=== PATIENT | female | born 1950 | race Caucasian/White ===

== ENCOUNTER 2022-06-06 17:08 | Emergency (ER) | payer MEDICARE, OTHER, SELFPAY ==
[2022-06-06 17:12] VITALS: BP 161/76; PULSE 98; RESP 18; TEMP 37.1; O2SAT 97; BMI 24.8
--- NOTE | 2022-06-06 17:37 | CRLHL7_ITS ---
For Patients: As a result of the Century Cures Act, medical imaging exams and procedure reports are released immediately into your electronic medical record. You may view this report before your referring provider. If you have questions, please contact your health care provider. INDICATION: COUGH TECHNIQUE: Chest 1 view. COMPARISON: None. FINDINGS: Cardiovascular and mediastinum: Heart size and vasculature are normal in caliber and appearance. Mediastinum is within normal limits. Lungs and pleural space: Lungs are clear. No sign of infiltrate or mass. No sign of pleural effusion. No pneumothorax. Bones and soft tissues: No significant findings. IMPRESSION: Unremarkable chest. Dictated by: Berny Estrada MD @ 06/06/2022 18:00:46 (Electronically Signed)
--- NOTE | 2022-06-06 17:54 | ED_ITS ---
HPI - General Adult General Chief complaint: High Blood Pressure Stated complaint: High Blood Pressure Time Seen by Provider: 06/06/22 17:09 Source: patient Mode of arrival: ambulatory Limitations: no limitations History of Present Illness HPI narrative: Patient is a 72-year-old female coming in today with generalized not feeling well. She states she woke up this morning and just felt off. Her face felt flushed, her ears felt full, her throat felt dry, she felt tired. She is very concerned because her blood pressure was 150 systolic at home and she is afraid she is going to have a heart attack or stroke. She states that her blood pressures generally in the 120s systolic. She was just started on losartan 4 days ago. She was on lisinopril previous to that but developed angioedema. She denies headache, blurry vision, muffled hearing, confusion or slurred speech. She denies chest pain or feeling short of breath. She denies urinary symptoms such as increased frequency, urgency or dysuria. She denies constipation or diarrhea. She states that she has abdominal cramping that comes and go but this is not necessarily new for her. She denies any skin changes. She denies any neurologic deficits. She denies tripping or falling recently. She denies any head trauma. Related Data Home Medications Medication Instructions Recorded Confirmed amlodipine 5 mg tablet mg 06/06/22 estradiol 10 mcg vaginal tablet mcg VAGINAL 06/06/22 lansoprazole 30 mg capsule,delayed mg 06/06/22 release losartan 50 mg tablet mg 06/06/22 rosuvastatin 10 mg tablet mg 06/06/22 Allergies Allergy/AdvReac Type Severity Reaction Status Date / Time lisinopril Allergy lip Verified 06/06/22 17:22 swelling Review of Systems Status of ROS: Reports: 10 or more systems reviewed and unremarkable except as noted in History and below Exam Narrative: Exam Narrative: Well-nourished well-developed patient in no acute distress, but is quite anxious. Alert and oriented. Answers questions appropriately. No tangential or magical thinking noted. Patient speaks in full sentences without needing to catch their breath. HEENT: Normocephalic atraumatic. Pupils are equally round reactive to light. Extraocular muscles are intact. Conjunctivae are moist without any icterus noted. Moist mucous membranes. Posterior pharynx is normal. Neck is soft without any lymphadenopathy or thyromegaly. No masses are appreciated. Cardiovascular: Heart is regular rate and rhythm S1 and S2 are present without any murmurs. Lungs: Clear to auscultation bilaterally no wheezes rhonchi or rales are appreciated. Patient takes deep breaths without any discomfort. Abdomen: Soft and nontender nondistended with normal bowel sounds. No guarding or rebound. No masses or organomegaly appreciated. Extremities: Bilateral lower extremities are without edema. Normal DP and PT pulses. Skin: Well perfused without any obvious rashes. Const: Vital Signs, click to edit/add: Vital Signs - 24 hr 06/06/22 17:12 Temperature 98.7 F Pulse Rate [Right Pulse Oximeter] 98 Respiratory Rate 18 Blood Pressure [Ri ght Upper Arm] 161/76 H Pulse Oximetry 97 Course Course Hospital Course: Workup done which included lab work and imaging-everything was unremarkable today. Vital Signs Vital signs: Initial Vital Signs Temperature 98.7 F 06/06/22 17:12 Temperature Source Temporal Artery Scan 06/06/22 17:12 Pulse Rate 98 06/06/22 17:12 Respiratory Rate 18 06/06/22 17:12 Blood Pressure 161/76 H 06/06/22 17:12 Blood Pressure Mean 104 06/06/22 17:12 Blood Pressure Position Sitting 06/06/22 17:12 Pulse Oximetry 97 06/06/22 17:12 Oxygen Delivery Method 06/06/22 17:12 Vital Signs Temperature 98.7 F 06/06/22 17:12 Pulse Rate 98 06/06/22 17:12 Respiratory Rate 18 06/06/22 17:12 Blood Pressure 161/76 H 06/06/22 17:12 Pulse Oximetry 97 06/06/22 17:12 Temperature 98.7 F 06/06/22 17:12 Pulse Rate 98 06/06/22 17:12 Respiratory Rate 18 06/06/22 17:12 Blood Pressure 161/76 H 06/06/22 17:12 Pulse Oximetry 97 06/06/22 17:12 Medical Decision Making MDM Narrative Medical decision making narrative: 72-year-old female with nonspecific feelings of just not feeling well. Her workup was unremarkable today. We discussed resting, increasing hydration, eating nutritious meals and following up with her primary care provider this week. Certainly, returning if things are getting worse. Patient was agreeable with everything we discussed and had no other questions. Medical Records Medical records reviewed: Yes I reviewed the patient's medical records Lab Data Lab results reviewed: Yes I reviewed the patient's lab results Labs: Lab Results 06/06/22 06/06/22 06/06/22 Range/Units 17:38 18:30 18:30 WBC 6.27 (4.50-11.00) K/uL RBC 4.92 (4.00-5.20) m/uL Hgb 14.8 (12.0-16.0) gm/dL Hct 44.2 (33.0-51.0) % MCV 90 (80-100) fL MCH 30 (26-34) pg MCHC 34 (32-36) gm/dL RDW Coeff of Bryanna 12.1 (11.5-15.5) % Plt Count 271 (140-440) K/uL Neut % (Auto) 70.0 (42.0-72.0) % Lymph % (Auto) 21.7 (20-44) % [place] % (Auto) 7.3 (0.0-11.0) % Eos % (Auto) 0.8 (0.0-7.0) % Baso % (Auto) 0.0 (0.0-3.0) % Neut # (Auto) 4.39 (1.7-7.0) K/uL Lymph # (Auto) 1.36 (0.90-2.90) K/uL [place] # (Auto) 0.50 (0.00-0.90) K/UL Eos # (Auto) 0.05 (0.00-0.50) K/uL Baso # (Auto) 0.00 (0.00-0.30) K/uL Abs Immat Gran (auto) 0.01 (0.00-0.30) K/uL ESR 8 (2-20) mm/hr Sodium (135-149) mmol/L Potassium (3.6-5.1) mmol/L Chloride (96-114) mmol/L Carbon Dioxide (20-32) mmol/L BUN (7-30) mg/dL Creatinine (0.5-1.5) mg/dL Estimated Creat Clear Estimated GFR ml/min Glucose (60-115) mg/dL Lactate (0.5-1.9) mmol/L Calcium (8.4-10.6) mg/dL Total Bilirubin (0.1-1.5) mg/dL Direct Bilirubin (0.0-0.5) mg/dL AST (12-35) U/L ALT (4-35) U/L Alkaline Phosphatase (40-150) U/L C-Reactive Protein (0.5-1.0) mg/dL Total Protein (6.0-8.3) g/dL Albumin (3.3-5.0) g/dL Urine Color Yellow (Yellow) Urine Appearance Clear (Clear) Urine pH 6.0 (5.0-8.5) Ur Specific [place] 1.025 (1.000-1.030) Urine Protein Negative (Negative) Urine Glucose (UA) Negative (Negative) Urine Ketones Trace A (Negative) Urine Blood Negative (Negative) Urine Nitrite Negative (Negative) Urine Bilirubin Negative (Negative) Urine Urobilinogen 0.2 (0.2-1.0) Ur Leukocyte Esterase Negative (Negative) Urine RBC 2-5 A (0-2) Urine WBC 0-2 (0-5) Ur Squamous Epith Cells Few (None-Few) Urine Bacteria None (None) SARS-CoV-2 (PCR) (Negative) Influenza Type A (PCR) (Negative) Influenza Type B (PCR) (Negative) Group A Strep DNA (No Detected) POC Troponin I (0.01-0.04) ng/ml 06/06/22 06/06/22 06/06/22 Range/Units 18:30 18:30 18:30 WBC (4.50-11.00) K/uL RBC (4.00-5.20) m/uL Hgb (12.0-16.0) gm/dL Hct (33.0-51.0) % MCV (80-100) fL MCH (26-34) pg MCHC (32-36) gm/dL RDW Coeff of Bryanna (11.5-15.5) % Plt Count (140-440) K/uL Neut % (Auto) (42.0-72.0) % Lymph % (Auto) (20-44) % [place] % (Auto) (0.0-11.0) % Eos % (Auto) (0.0-7.0) % Baso % (Auto) (0.0-3.0) % Neut # (Auto) (1.7-7.0) K/uL Lymph # (Auto) (0.90-2.90) K/uL [place] # (Auto) (0.00-0.90) K/UL Eos # (Auto) (0.00-0.50) K/uL Baso # (Auto) (0.00-0.30) K/uL Abs Immat Gran (auto) (0.00-0.30) K/uL ESR (2-20) mm/hr Sodium 139 (135-149) mmol/L Potassium 3.8 (3.6-5.1) mmol/L Chloride 105 (96-114) mmol/L Carbon Dioxide 25 (20-32) mmol/L BUN 13 (7-30) mg/dL Creatinine 0.5 (0.5-1.5) mg/dL Estimated Creat Clear 45.09 Estimated GFR 99 ml/min Glucose 108 (60-115) mg/dL Lactate 0.9 (0.5-1.9) mmol/L Calcium 9.8 (8.4-10.6) mg/dL Total Bilirubin 0.5 (0.1-1.5) mg/dL Direct Bilirubin 0.2 (0.0-0.5) mg/dL AST 25 (12-35) U/L ALT 37 H (4-35) U/L Alkaline Phosphatase 77 (40-150) U/L C-Reactive Protein < 0.5 L (0.5-1.0) mg/dL Total Protein 7.6 (6.0-8.3) g/dL Albumin 5.0 (3.3-5.0) g/dL Urine Color (Yellow) Urine Appearance (Clear) Urine pH (5.0-8.5) Ur Specific [place] (1.000-1.030) Urine Protein (Negative) Urine Glucose (UA) (Negative) Urine Ketones (Negative) Urine Blood (Negative) Urine Nitrite (Negative) Urine Bilirubin (Negative) Urine Urobilinogen (0.2-1.0) Ur Leukocyte Esterase (Negative) Urine RBC (0-2) Urine WBC (0-5) Ur Squamous Epith Cells (None-Few) Urine Bacteria (None) SARS-CoV-2 (PCR) (Negative) Influenza Type A (PCR) (Negative) Influenza Type B (PCR) (Negative) Group A Strep DNA Not Detected (No Detected) POC Troponin I (0.01-0.04) ng/ml 06/06/22 06/06/22 Range/Units 18:30 18:30 WBC (4.50-11.00) K/uL RBC (4.00-5.20) m/uL Hgb (12.0-16.0) gm/dL Hct (33.0-51.0) % MCV (80-100) fL MCH (26-34) pg MCHC (32-36) gm/dL RDW Coeff of Bryanna (11.5-15.5) % Plt Count (140-440) K/uL Neut % (Auto) (42.0-72.0) % Lymph % (Auto) (20-44) % [place] % (Auto) (0.0-11.0) % Eos % (Auto) (0.0-7.0) % Baso % (Auto) (0.0-3.0) % Neut # (Auto) (1.7-7.0) K/uL Lymph # (Auto) (0.90-2.90) K/uL [place] # (Auto) (0.00-0.90) K/UL Eos # (Auto) (0.00-0.50) K/uL Baso # (Auto) (0.00-0.30) K/uL Abs Immat Gran (auto) (0.00-0.30) K/uL ESR (2-20) mm/hr Sodium (135-149) mmol/L Potassium (3.6-5.1) mmol/L Chloride (96-114) mmol/L Carbon Dioxide (20-32) mmol/L BUN (7-30) mg/dL Creatinine (0.5-1.5) mg/dL Estimated Creat Clear Estimated GFR ml/min Glucose (60-115) mg/dL Lactate (0.5-1.9) mmol/L Calcium (8.4-10.6) mg/dL Total Bilirubin (0.1-1.5) mg/dL Direct Bilirubin (0.0-0.5) mg/dL AST (12-35) U/L ALT (4-35) U/L Alkaline Phosphatase (40-150) U/L C-Reactive Protein (0.5-1.0) mg/dL Total Protein (6.0-8.3) g/dL Albumin (3.3-5.0) g/dL Urine Color (Yellow) Urine Appearance (Clear) Urine pH (5.0-8.5) Ur Specific [place] (1.000-1.030) Urine Protein (Negative) Urine Glucose (UA) (Negative) Urine Ketones (Negative) Urine Blood (Negative) Urine Nitrite (Negative) Urine Bilirubin (Negative) Urine Urobilinogen (0.2-1.0) Ur Leukocyte Esterase (Negative) Urine RBC (0-2) Urine WBC (0-5) Ur Squamous Epith Cells (None-Few) Urine Bacteria (None) SARS-CoV-2 (PCR) Negative SARS-CoV-2 (Negative) Influenza Type A (PCR) Negative PCR FLU A (Negative) Influenza Type B (PCR) Negative PCR FLU B (Negative) Group A Strep DNA (No Detected) POC Troponin I 0.00 L (0.01-0.04) ng/ml Imaging Data Chest x-ray: Attestation: I have reviewed the pertinent imaging results. My impression: Normal chest Radiologist's impression: FINDINGS: Cardiovascular and mediastinum: Heart size and vasculature are normal in caliber and appearance. Mediastinum is within normal limits. Lungs and pleural space: Lungs are clear. No sign of infiltrate or mass. No sign of pleural effusion. No pneumothorax. Bones and soft tissues: No significant findings. IMPRESSION: Unremarkable chest. Discharge Plan Discharge Clinical Impression: Elevated blood pressure reading, Fatigue Patient Disposition: Home, Self-Care Condition: Stable Additional Instructions: Make sure to get plenty of rest tonight. Make sure to stay well-hydrated any nutritious meals. Follow-up with your primary care provider this week. Return to the ER if your symptoms become worse. Prescriptions: No Action losartan 50 mg tablet 0RF amlodipine 5 mg tablet 0RF lansoprazole 30 mg capsule,delayed release(DR/EC) 0RF rosuvastatin 10 mg tablet 0RF estradiol 10 mcg tablet VAGINAL 0RF Follow Up/Referrals: Steph Judge MD [Primary Care Provider] - Stand Alone Forms: [employer] Info Instructions
[2022-06-06 18:12] VITALS: BP 150/73; PULSE 74; RESP 16; O2SAT 95
[2022-06-06 18:30] VITALS: BP 151/89; PULSE 74; RESP 18; O2SAT 98
[2022-06-06 18:48] LABS: Lactate* 0.9 mmol/L (0.5-1.9)
[2022-06-06 18:49] LABS: Eosinophils Absolute Auto 0.05 K/uL (0.00-0.50); Eosinophils Percent Auto 0.8 % (0.0-7.0); Hematocrit 44.2 % (33.0-51.0); Hemoglobin* 14.8 gm/dL (12.0-16.0); Immature Granulocytes Abs Auto 0.01 K/uL (0.00-0.30); Lymphocytes Absolute Auto 1.36 K/uL (0.90-2.90); Lymphocytes Percent Auto 21.7 % (20-44); Mean Corpuscular HGB Conc 34 gm/dL (32-36); Mean Corpuscular Hemoglobin 30 pg (26-34); Mean Corpuscular Volume 90 fL (80-100); Monocytes Percent Auto 7.3 % (0.0-11.0); Neutrophils Absolute Auto 4.39 K/uL (1.7-7.0); Platelet Count* 271 K/uL (140-440); RDW Coefficient of Variation % 12.1 % (11.5-15.5); Red Blood Count 4.92 m/uL (4.00-5.20); White Blood Count* 6.27 K/uL (4.50-11.00)
[2022-06-06 18:56] LABS: Slide Review Reflex No
[2022-06-06 19:23] LABS: Chloride* 105 mmol/L (96-114); Potassium* 3.8 mmol/L (3.6-5.1); Sodium* 139 mmol/L (135-149)
[2022-06-06 19:25] LABS: Creatinine* 0.5 mg/dL (0.5-1.5); Est. Creatinine Clearance* 45.09; Estimated Glomerular Filt Rate 99 ml/min
[2022-06-06 19:26] LABS: Alanine Aminotransferase* 37 U/L (4-35); Alkaline Phosphatase* 77 U/L (40-150); Aspartate Amino Transferase* 25 U/L (12-35); Bilirubin Direct* 0.2 mg/dL (0.0-0.5); Bilirubin Total* 0.5 mg/dL (0.1-1.5); Blood Urea Nitrogen* 13 mg/dL (7-30); Carbon Dioxide* 25 mmol/L (20-32); Glucose* 108 mg/dL (60-115); Total Protein* 7.6 g/dL (6.0-8.3)
[2022-06-06 19:27] LABS: Calcium* 9.8 mg/dL (8.4-10.6)
[2022-06-06 19:29] LABS: Strep A DNA Probe* Not Detected (No Detected)
[2022-06-06 19:38] LABS: PCR FLU A Negative PCR FLU A (Negative); PCR FLU B Negative PCR FLU B (Negative); SARS PCR* Negative SARS-CoV-2 (Negative)
[2022-06-06 19:39] LABS: C Reactive Protein* < 0.5 mg/dL (0.5-1.0)
[2022-06-06 19:43] LABS: Appearance Urine Clear (Clear); Bilirubin Urine Negative (Negative); Blood Urine Negative (Negative); Color Urine Yellow (Yellow); Glucose Urine Negative (Negative); Ketones Urine Trace (Negative); Leukocyte Esterase Urine Negative (Negative); Nitrite Urine Negative (Negative); Protein Urine Negative (Negative); Specific Gravity Urine 1.025 (1.000-1.030); Urobilinogen Urine 0.2 (0.2-1.0)
[2022-06-06 19:57] LABS: Squamous Epithelial Cell Urine Few (None-Few); WBC Urine 0-2 (0-5)
[2022-06-06 20:04] LABS: Erythrocyte SedimentationRate* 8 mm/hr (2-20)
--- NOTE | 2022-06-06 20:05 | ED.NURSE ---
MD at bedside speaking with patient/family.
[2022-06-07 11:57] LABS: Mono Screen* Negative (Negative)
== END 2022-06-06 20:15 | disposition home or self-care (01) ==
PROVIDERS: Emergency Provider Family Medicine; PCP Family Medicine
DX: R03.0 Elevated blood-pressure reading, without diagnosis of hypertension (principal)
CPT/HCPCS: 36415; 71045; 80048; 80076; 81001; 83605; 84484; 85025; 85651; 86140; 86308; 87086; 87502; 87635; 87651; 99284

== ENCOUNTER 2022-06-24 10:25 | Emergency (ER) | payer MEDICARE, OTHER, SELFPAY ==
[2022-06-24] VITALS (7 sets, daily range): BP systolic 123–155; BP diastolic 72–85; PULSE 69–82; RESP 10–18; TEMP 37.1; O2SAT 96–99; BMI 23.6
--- NOTE | 2022-06-24 11:19 | CRLHL7_ITS ---
For Patients: As a result of the Century Cures Act, medical imaging exams and procedure reports are released immediately into your electronic medical record. You may view this report before your referring provider. If you have questions, please contact your health care provider. INDICATION: SOB,RIGHT ARM WEAKNESS, NAUSEA HISTORY: Shortness of breath. Right arm weakness. Nausea. COMPARISON: None. TECHNIQUE: CT of the brain without contrast. Coronal/sagittal reconstruction images. FINDINGS: There is no acute intracranial hemorrhage. There is no shift of midline structures. There is no mass effect. No hyperdense MCA sign. Basilar cisterns are patent. There are no abnormal extra-axial fluid collections seen. No acute loss of carreno-white matter differentiation is identified. No abnormal extra-axial fluid collection. Pterygoid plates are intact. There is no mastoid effusion. The skullbase and calvaria are intact. IMPRESSION: 1. There is no acute intracranial hemorrhage, shift of midline structures, or mass effect. 2. No hyperdense MCA sign. 3. No acute loss of carreno-white matter differentiation is seen. 4. Report called to Dr. Tsang, ED, 06/24/22, 1200 pm. Dictated by Anmol Moon MD @ 06/24/2022 12:01:15 PM Please note that all CT scans at this facility use dose modulation, iterative reconstruction, and/or weight-based dosing when appropriate to reduce radiation dose to as low as reasonably achievable. Dictated by: Anmol Moon MD @ 06/24/2022 12:01:42 (Electronically Signed)
--- NOTE | 2022-06-24 11:19 | CRLHL7_ITS ---
For Patients: As a result of the Century Cures Act, medical imaging exams and procedure reports are released immediately into your electronic medical record. You may view this report before your referring provider. If you have questions, please contact your health care provider. DATE: 06/24/2022. CLINICAL HISTORY: Upper extremity weakness. TECHNIQUE: Standard helical CT image acquisition through the head and neck was performed after intravenous contrast bolus enhancement. Multiplanar reconstructed images were performed and interpreted. COMPARISON: None available. FINDINGS: The origins of the great vessels from the aortic arch are patent. The origins of the right and left vertebral arteries are patent. The common carotid arteries are patent. Mild (<50%) atherosclerotic stenosis of the proximal right ICA by NASCET criteria. No significant stenosis of the proximal left ICA by NASCET criteria. The more distal cervical segments of the internal carotid arteries are patent. The cervical segments of the vertebral arteries are patent. No intracranial proximal large vessel occlusion or flow-limiting luminal stenosis. No evidence of cerebral aneurysm or findings to suggest an arteriovenous shunting lesion. IMPRESSION: 1. No intracranial proximal large vessel occlusion or flow-limiting luminal stenosis. 2. Mild (<50%) atherosclerotic stenosis of the proximal right ICA by NASCET criteria. Please note that all CT scans at this facility use dose modulation, iterative reconstruction, and/or weight-based dosing when appropriate to reduce radiation dose to as low as reasonably achievable. Dictated by Elan Medrano MD @ 06/25/2022 12:57:20 PM (Electronically Signed)
[2022-06-24 11:27] LABS: Lactate* 1.5 mmol/L (0.5-1.9)
[2022-06-24 11:36] LABS: Eosinophils Absolute Auto 0.05 K/uL (0.00-0.50); Eosinophils Percent Auto 0.9 % (0.0-7.0); Hematocrit 41.4 % (33.0-51.0); Hemoglobin* 14.2 gm/dL (12.0-16.0); Immature Granulocytes Abs Auto 0.04 K/uL (0.00-0.30); Lymphocytes Absolute Auto 1.32 K/uL (0.90-2.90); Lymphocytes Percent Auto 24.5 % (20-44); Mean Corpuscular HGB Conc 34 gm/dL (32-36); Mean Corpuscular Hemoglobin 30 pg (26-34); Mean Corpuscular Volume 89 fL (80-100); Monocytes Percent Auto 7.1 % (0.0-11.0); Neutrophils Percent Auto 66.8 % (42.0-72.0); Platelet Count* 262 K/uL (140-440); RDW Coefficient of Variation % 11.8 % (11.5-15.5); Red Blood Count 4.67 m/uL (4.00-5.20); White Blood Count* 5.39 K/uL (4.50-11.00)
--- NOTE | 2022-06-24 11:36 | ED.GENADULT ---
HPI - General Adult General Chief complaint: Shortness of Breath/Dyspnea Stated complaint: Shortness of breath,left arm numbness, nausea Time Seen by Provider: 06/24/22 11:05 Source: patient Mode of arrival: ambulatory Limitations: no limitations History of Present Illness HPI narrative: Debi is a 72-year-old female coming in today with several concerns. She states that for several days now she has had a sensation that she cannot catch her breath. She feels a pressure that comes and goes in the central chest. She also complains of numbness and tingling in her left arm that radiates all the way down to her fingertips. She feels that when this tingling comes her hand and arm both become weak. She denies any weakness of the lower extremities. She states that the sensation of shortness of breath chest pain do not always coincide with the left arm going numb. She states that the shortness of breath and chest pain comes at rest or when she is out walking. She states that last Sunday, so 3 days ago, she got out of the car to go into a restaurant and she almost passed out she became so lightheaded. She thankfully did not lose consciousness at that time. But she did have to sit down. She states that she has a low-grade fever up to 99 that comes and goes and when she gets it she becomes very diaphoretic. She also states that she has chronic insomnia and she sometimes only sleeps 2 hours per night. Last night she slept about 3 hours. The night before she slept the solid 8. She states that yesterday she felt much better than today but she still felt ?off?. She was seen in the ER about 2 weeks ago for feeling unwell, workup was normal at that time. She states that she has continued to feel unwell since then but her symptoms have only gotten worse with the shortness of breath sensation, chest pain and left arm numbness. She denies any headaches or blurry vision. No ringing in her ears or changes in her hearing. She denies any loss of bowel or bladder function. She denies diarrhea or constipation. She denies any urinary symptoms such as increased frequency, urgency or dysuria. She denies any skin rashes. She states that she did have a bug bite on her left upper arm several weeks ago, but denies camping or being out in the [place]. She denies any aggravating or ameliorating factors to her concerns today. Related Data Home Medications Medication Instructions Recorded Confirmed amlodipine 5 mg tablet mg 06/06/22 estradiol 10 mcg vaginal tablet mcg vaginal 06/06/22 lansoprazole 30 mg capsule,delayed mg 06/06/22 release losartan 50 mg tablet mg 06/06/22 rosuvastatin 10 mg tablet mg 06/06/22 Allergies Allergy/AdvReac Type Severity Reaction Status Date / Time lisinopril Allergy lip Verified 06/06/22 17:22 swelling Review of Systems Status of ROS: Reports: 10 or more systems reviewed and unremarkable except as noted in History and below [facility] Social History Smoking Status: Former smoker Do you use any of these nicotine containing products: None Second hand tobacco smoke exposure: No How often do you have a drink containing alcohol: monthly or less How often do you have six or more drinks on one occasion: Never AUDIT-C Alcohol total score: 1 Non-prescribed substance use: denies use service: No Exam Narrative: Exam Narrative: Well-nourished well-developed patient in no acute distress. Alert and oriented. Answers questions appropriately. Mood and affect are appropriate. Thoughts are goal oriented and rational. No tangential or magical thinking noted. Patient speaks in full sentences without needing to catch their breath. Speech is not slurred or pressured. HEENT: Normocephalic atraumatic. Pupils are equally round reactive to light. Extraocular muscles are intact. Conjunctivae are moist without any icterus noted. Moist mucous membranes. Posterior pharynx is normal. Neck is soft without any lymphadenopathy or thyromegaly. No masses are appreciated. Cardiovascular: Heart is regular rate and rhythm S1 and S2 are present without any murmurs. Lungs: Clear to auscultation bilaterally no wheezes rhonchi or rales are appreciated. Patient takes deep breaths without any discomfort. Abdomen: Soft and nontender nondistended with normal bowel sounds. No guarding or rebound. No masses or organomegaly appreciated. Extremities: Bilateral lower extremities are without edema. Normal DP and PT pulses. Skin: Well perfused without any obvious rashes. Strength is 5/5 of the upper and lower extremities. Reflexes are 2+ and symmetric at the knees. Cranial nerves 3-12 are normal. There is no nystagmus either horizontally or vertically. Gait is normal. Hand assembly associate is normal and symmetric. Const: Vital Signs, click to edit/add: Vital Signs - 24 hr 06/24/22 10:30 06/24/22 10:30 06/24/22 12:00 Temperature 98.8 F Pulse Rate [Left P ulse Oximeter] 82 71 Respiratory Rate 18 14 Blood Pressure [Le ft Upper Arm] 155/85 H 155/85 H 141/72 H Pulse Oximetry 99 98 Oxygen Delivery Me thod Room Air Room Air 06/24/22 11:00 06/24/22 11:55 06/24/22 12:30 Temperature Pulse Rate [Left P ulse Oximeter] 73 74 Respiratory Rate 11 L 10 L Blood Pressure [Le ft Upper Arm] 123/74 147/76 H 139/72 Pulse Oximetry 99 96 Oxygen Delivery Me thod Room Air Room Air 06/24/22 12:50 Temperature Pulse Rate [Left P ulse Oximeter] 71 Respiratory Rate Blood Pressure [Le ft Upper Arm] Pulse Oximetry 97 Oxygen Delivery Me thod Room Air Course Course Hospital Course: Differential diagnosis for patient's concerns include coronary artery disease, stroke, PE, Lyme disease, costochondritis, pneumonia - because of patient's symptoms, duration of symptoms and her concern that something very wrong is going on patient will have a very thorough workup in the ED today to rule out the above possibilities. This included lab work, EKG, chest x-ray, head CT and CTA head and neck. Workup was unremarkable aside from a slightly low TSH at 0.24. Vital Signs Vital signs: Initial Vital Signs Temperature 98.8 F 06/24/22 10:30 Temperature Source Temporal Artery Scan 06/24/22 10:30 Pulse Rate 82 06/24/22 10:30 Respiratory Rate 18 06/24/22 10:30 Blood Pressure 155/85 H 06/24/22 10:30 Blood Pressure Mean 108 06/24/22 10:30 Blood Pressure Position Supine 06/24/22 10:30 Pulse Oximetry 99 06/24/22 10:30 Oxygen Delivery Method 06/24/22 10:30 Vital Signs Temperature 98.8 F 06/24/22 10:30 Pulse Rate 82 06/24/22 10:30 Respiratory Rate 18 06/24/22 10:30 Blood Pressure 155/85 H 06/24/22 10:30 Pulse Oximetry 99 06/24/22 10:30 Oxygen Delivery Method 06/24/22 10:30 Temperature 98.8 F 06/24/22 10:30 Pulse Rate 71 06/24/22 12:50 Respiratory Rate 14 06/24/22 12:00 Blood Pressure 139/72 06/24/22 12:30 Pulse Oximetry 97 06/24/22 12:50 Oxygen Delivery Method 06/24/22 12:50 Medical Decision Making MDM Narrative Medical decision making narrative: 72-year-old female with sensation of shortness of breath, chest discomfort, left arm tingling, dizziness, insomnia-workup fairly unremarkable aside from a minimally low TSH. At this time recommend follow-up with her primary care provider to do any further thyroid testing as they see fit, and also recommend a stress test. Patient was disappointed that nothing definitive was found today for her symptoms. Did discuss stress, anxiety, lack of sleep causing these symptoms as well. Patient and had no other questions. Differential Diagnosis Differential Diagnosis: Coronary artery disease, PE, stroke, pneumothorax, anxiety Medical Records Medical records reviewed: Yes I reviewed the patient's medical records Lab Data Lab results reviewed: Yes I reviewed the patient's lab results Labs: Lab Results 06/24/22 06/24/22 06/24/22 Range/Units 11:00 11:00 11:00 WBC 5.39 (4.50-11.00) K/uL RBC 4.67 (4.00-5.20) m/uL Hgb 14.2 (12.0-16.0) gm/dL Hct 41.4 (33.0-51.0) % MCV 89 (80-100) fL MCH 30 (26-34) pg MCHC 34 (32-36) gm/dL RDW Coeff of Bryanna 11.8 (11.5-15.5) % Plt Count 262 (140-440) K/uL Neut % (Auto) 66.8 (42.0-72.0) % Lymph % (Auto) 24.5 (20-44) % Donley % (Auto) 7.1 (0.0-11.0) % Eos % (Auto) 0.9 (0.0-7.0) % Baso % (Auto) 0.0 (0.0-3.0) % Neut # (Auto) 3.60 (1.7-7.0) K/uL Lymph # (Auto) 1.32 (0.90-2.90) K/uL Donley # (Auto) 0.40 (0.00-0.90) K/UL Eos # (Auto) 0.05 (0.00-0.50) K/uL Baso # (Auto) 0.00 (0.00-0.30) K/uL Abs Immat Gran (auto) 0.04 (0.00-0.30) K/uL ESR 6 (2-20) mm/hr D-Dimer Quant (PE/DVT) (0.00-0.50) ug/ml Sodium 139 (135-149) mmol/L Potassium 4.0 (3.6-5.1) mmol/L Chloride 106 (96-114) mmol/L Carbon Dioxide 22 (20-32) mmol/L BUN 13 (7-30) mg/dL Creatinine 0.5 (0.5-1.5) mg/dL Estimated Creat Clear 45.09 Estimated GFR 99 ml/min Glucose 122 H (60-115) mg/dL Lactate (0.5-1.9) mmol/L Calcium 10.2 (8.4-10.6) mg/dL Total Bilirubin 0.4 (0.1-1.5) mg/dL Direct Bilirubin 0.2 (0.0-0.5) mg/dL AST 27 (12-35) U/L ALT 25 (4-35) U/L Alkaline Phosphatase 59 (40-150) U/L Troponin I < 0.01 L (0.01-0.04) ng/mL C-Reactive Protein (0.5-1.0) mg/dL Total Protein 7.4 (6.0-8.3) g/dL Albumin 5.0 (3.3-5.0) g/dL TSH (0.270-4.20) uIU/mL Urine Color (Yellow) Urine Appearance (Clear) Urine pH (5.0-8.5) Ur Specific [place] (1.000-1.030) Urine Protein (Negative) Urine Glucose (UA) (Negative) Urine Ketones (Negative) Urine Blood (Negative) Urine Nitrite (Negative) Urine Bilirubin (Negative) Urine Urobilinogen (0.2-1.0) Ur Leukocyte Esterase (Negative) Urine RBC (0-2) Urine WBC (0-5) Ur Squamous Epith Cells (None-Few) Amorphous Sediment (None) Other Sediment (None) Urine Bacteria (None) Urine Mucus (None) Acetaminophen < 10.0 L (10.0-30.0) ug/mL SARS-CoV-2 (PCR) (Negative) Influenza Type A (PCR) (Negative) Influenza Type B (PCR) (Negative) 06/24/22 06/24/22 06/24/22 Range/Units 11:00 11:00 11:00 WBC (4.50-11.00) K/uL RBC (4.00-5.20) m/uL Hgb (12.0-16.0) gm/dL Hct (33.0-51.0) % MCV (80-100) fL MCH (26-34) pg MCHC (32-36) gm/dL RDW Coeff of Bryanna (11.5-15.5) % Plt Count (140-440) K/uL Neut % (Auto) (42.0-72.0) % Lymph % (Auto) (20-44) % Donley % (Auto) (0.0-11.0) % Eos % (Auto) (0.0-7.0) % Baso % (Auto) (0.0-3.0) % Neut # (Auto) (1.7-7.0) K/uL Lymph # (Auto) (0.90-2.90) K/uL [place] # (Auto) (0.00-0.90) K/UL Eos # (Auto) (0.00-0.50) K/uL Baso # (Auto) (0.00-0.30) K/uL Abs Immat Gran (auto) (0.00-0.30) K/uL ESR (2-20) mm/hr D-Dimer Quant (PE/DVT) < 0.27 (0.00-0.50) ug/ml Sodium (135-149) mmol/L Potassium (3.6-5.1) mmol/L Chloride (96-114) mmol/L Carbon Dioxide (20-32) mmol/L BUN (7-30) mg/dL Creatinine (0.5-1.5) mg/dL Estimated Creat Clear Estimated GFR ml/min Glucose (60-115) mg/dL Lactate 1.5 (0.5-1.9) mmol/L Calcium (8.4-10.6) mg/dL Total Bilirubin (0.1-1.5) mg/dL Direct Bilirubin (0.0-0.5) mg/dL AST (12-35) U/L ALT (4-35) U/L Alkaline Phosphatase (40-150) U/L Troponin I (0.01-0.04) ng/mL C-Reactive Protein < 0.5 L (0.5-1.0) mg/dL Total Protein (6.0-8.3) g/dL Albumin (3.3-5.0) g/dL TSH (0.270-4.20) uIU/mL Urine Color (Yellow) Urine Appearance (Clear) Urine pH (5.0-8.5) Ur Specific [place] (1.000-1.030) Urine Protein (Negative) Urine Glucose (UA) (Negative) Urine Ketones (Negative) Urine Blood (Negative) Urine Nitrite (Negative) Urine Bilirubin (Negative) Urine Urobilinogen (0.2-1.0) Ur Leukocyte Esterase (Negative) Urine RBC (0-2) Urine WBC (0-5) Ur Squamous Epith Cells (None-Few) Amorphous Sediment (None) Other Sediment (None) Urine Bacteria (None) Urine Mucus (None) Acetaminophen (10.0-30.0) ug/mL SARS-CoV-2 (PCR) (Negative) Influenza Type A (PCR) (Negative) Influenza Type B (PCR) (Negative) 06/24/22 06/24/22 06/24/22 Range/Units 11:00 11:20 11:30 WBC (4.50-11.00) K/uL RBC (4.00-5.20) m/uL Hgb (12.0-16.0) gm/dL Hct (33.0-51.0) % MCV (80-100) fL MCH (26-34) pg MCHC (32-36) gm/dL RDW Coeff of Bryanna (11.5-15.5) % Plt Count (140-440) K/uL Neut % (Auto) (42.0-72.0) % Lymph % (Auto) (20-44) % [place]ley % (Auto) (0.0-11.0) % Eos % (Auto) (0.0-7.0) % Baso % (Auto) (0.0-3.0) % Neut # (Auto) (1.7-7.0) K/uL Lymph # (Auto) (0.90-2.90) K/uL [place] # (Auto) (0.00-0.90) K/UL Eos # (Auto) (0.00-0.50) K/uL Baso # (Auto) (0.00-0.30) K/uL Abs Immat Gran (auto) (0.00-0.30) K/uL ESR (2-20) mm/hr D-Dimer Quant (PE/DVT) (0.00-0.50) ug/ml Sodium (135-149) mmol/L Potassium (3.6-5.1) mmol/L Chloride (96-114) mmol/L Carbon Dioxide (20-32) mmol/L BUN (7-30) mg/dL Creatinine (0.5-1.5) mg/dL Estimated Creat Clear Estimated GFR ml/min Glucose (60-115) mg/dL Lactate (0.5-1.9) mmol/L Calcium (8.4-10.6) mg/dL Total Bilirubin (0.1-1.5) mg/dL Direct Bilirubin (0.0-0.5) mg/dL AST (12-35) U/L ALT (4-35) U/L Alkaline Phosphatase (40-150) U/L Troponin I (0.01-0.04) ng/mL C-Reactive Protein (0.5-1.0) mg/dL Total Protein (6.0-8.3) g/dL Albumin (3.3-5.0) g/dL TSH 0.241 L (0.270-4.20) uIU/mL Urine Color Yellow (Yellow) Urine Appearance Clear (Clear) Urine pH 7.5 (5.0-8.5) Ur Specific [place] 1.015 (1.000-1.030) Urine Protein Negative (Negative) Urine Glucose (UA) Negative (Negative) Urine Ketones Negative (Negative) Urine Blood Negative (Negative) Urine Nitrite Negative (Negative) Urine Bilirubin Negative (Negative) Urine Urobilinogen 0.2 (0.2-1.0) Ur Leukocyte Esterase Negative (Negative) Urine RBC 0-2 (0-2) Urine WBC 0-2 (0-5) Ur Squamous Epith Cells Few (None-Few) Amorphous Sediment (None) Other Sediment (None) Urine Bacteria None (None) Urine Mucus (None) Acetaminophen (10.0-30.0) ug/mL SARS-CoV-2 (PCR) Negative SARS-CoV-2 (Negative) Influenza Type A (PCR) Negative PCR FLU A (Negative) Influenza Type B (PCR) Negative PCR FLU B (Negative) Imaging Data Chest x-ray: Attestation: I have reviewed the pertinent imaging results. My impression: No acute findings Radiologist's impression: COMPARISON: Single view of the chest dated 06/06/2022 FINDINGS: The heart size and central vascular pattern remains stable and within normal range. The lungs remain clear of acute infiltrates. There are no pleural effusions. There is mild elevation of the left hemidiaphragm. IMPRESSION: No acute cardiopulmonary disease is identified. CT scan - head: Attestation: I have reviewed the pertinent imaging results. My impression: No acute finding Radiologist's impression: FINDINGS: There is no acute intracranial hemorrhage. There is no shift of midline structures. There is no mass effect. No hyperdense MCA sign. Basilar cisterns are patent. There are no abnormal extra-axial fluid collections seen. No acute loss of carreno-white matter differentiation is identified. No abnormal extra-axial fluid collection. Pterygoid plates are intact. There is no mastoid effusion. The skullbase and calvaria are intact. IMPRESSION: 1. There is no acute intracranial hemorrhage, shift of midline structures, or mass effect. 2. No hyperdense MCA sign. 3. No acute loss of carreno-white matter differentiation is seen. 4. Report called to Dr. Tsang, ED, 06/24/22, [address] angiogram head and neck: Attestation: I have reviewed the pertinent imaging results. Radiologist's impression: Preliminary Report: 1. No evidence of proximal artery occlusion, high grade stenosis, aneurysm, dissection, or vascular malformation. 2. Final report per neurointerventional radiology service. ECG Data Attestation: I personally reviewed and interpreted this ECG as follows: (Normal sinus rhythm, right bundle-branch block, pulse 81) Discharge Plan Discharge Clinical Impression: Insomnia, Shortness of breath, Numbness and tingling in left arm Patient Disposition: Home, Self-Care Condition: Stable Additional Instructions: Follow-up with your primary care provider this as scheduled. At this time I recommend you discuss with your doctor the possibility of having a stress test to check your heart function in also to do follow-up thyroid studies as your TSH was minimally low today at 0.24. I recommend you share this information with your physician so you to can discuss together how to proceed. Prescriptions: No Action losartan 50 mg tablet amlodipine 5 mg tablet lansoprazole 30 mg capsule,delayed release(DR/EC) rosuvastatin 10 mg tablet estradiol 10 mcg tablet VAGINAL Follow Up/Referrals: Steph Judge MD [Primary Care Provider] - Stand Alone Forms: [employer] Info Instructions
[2022-06-24 11:38] LABS: Appearance Urine Clear (Clear); Bilirubin Urine Negative (Negative); Blood Urine Negative (Negative); Color Urine Yellow (Yellow); Glucose Urine Negative (Negative); Ketones Urine Negative (Negative); Leukocyte Esterase Urine Negative (Negative); Nitrite Urine Negative (Negative); Protein Urine Negative (Negative); Specific Gravity Urine 1.015 (1.000-1.030); Urobilinogen Urine 0.2 (0.2-1.0); pH Urine 7.5 (5.0-8.5)
[2022-06-24 11:44] LABS: Slide Review Reflex No
[2022-06-24 11:47] LABS: C Reactive Protein* < 0.5 mg/dL (0.5-1.0)
[2022-06-24 11:55] LABS: D Dimer Quantitative* < 0.27 ug/ml (0.00-0.50)
[2022-06-24 11:57] LABS: Troponin I* < 0.01 ng/mL (0.01-0.04)
--- NOTE | 2022-06-24 12:01 | CRLHL7_ITS ---
For Patients: As a result of the Century Cures Act, medical imaging exams and procedure reports are released immediately into your electronic medical record. You may view this report before your referring provider. If you have questions, please contact your health care provider. INDICATION: Chest pain TECHNIQUE: Chest 2 views. COMPARISON: Single view of the chest dated 06/06/2022 FINDINGS: The heart size and central vascular pattern remains stable and within normal range. The lungs remain clear of acute infiltrates. There are no pleural effusions. There is mild elevation of the left hemidiaphragm. IMPRESSION: No acute cardiopulmonary disease is identified. Dictated by Berny Sandra MD @ 06/24/2022 12:50:36 PM (Electronically Signed)
[2022-06-24 12:02] LABS: RBC Urine 0-2 (0-2); WBC Urine 0-2 (0-5)
[2022-06-24 12:03] LABS: Squamous Epithelial Cell Urine Few (None-Few)
[2022-06-24 12:12] LABS: Blood Urea Nitrogen* 13 mg/dL (7-30); Calcium* 10.2 mg/dL (8.4-10.6); Carbon Dioxide* 22 mmol/L (20-32); Chloride* 106 mmol/L (96-114); Creatinine* 0.5 mg/dL (0.5-1.5); Est. Creatinine Clearance* 45.09; Estimated Glomerular Filt Rate 99 ml/min; Glucose* 122 mg/dL (60-115); Sodium* 139 mmol/L (135-149)
[2022-06-24 12:13] LABS: Acetaminophen* < 10.0 ug/mL (10.0-30.0); Alanine Aminotransferase* 25 U/L (4-35); Alkaline Phosphatase* 59 U/L (40-150); Aspartate Amino Transferase* 27 U/L (12-35); Bilirubin Direct* 0.2 mg/dL (0.0-0.5); Bilirubin Total* 0.4 mg/dL (0.1-1.5); Total Protein* 7.4 g/dL (6.0-8.3)
[2022-06-24 12:17] LABS: PCR FLU A Negative PCR FLU A (Negative); PCR FLU B Negative PCR FLU B (Negative); SARS PCR* Negative SARS-CoV-2 (Negative)
[2022-06-24 12:21] LABS: Erythrocyte SedimentationRate* 6 mm/hr (2-20)
[2022-06-24 12:36] LABS: Thyroid Stimulating Hormone* 0.241 uIU/mL (0.270-4.20)
== END 2022-06-24 13:25 | disposition home or self-care (01) ==
PROVIDERS: Emergency Provider Family Medicine; PCP Family Medicine
DX: R06.02 Shortness of breath (principal); G47.00 Insomnia, unspecified
CPT/HCPCS: 36415; 70450; 70496; 70498; 71046; 80048; 80076; 80143; 81001; 83605; 84443; 84484; 85025; 85379; 85651; 86140; 86618; 87086; 87502; 87635; 93005; 99285; Q9967